=== PATIENT | female | born 1970 | race African-American/Black ===

== ENCOUNTER 2019-03-26 20:48 | Emergency (ER) | payer OTHER ==
[~2019-03-26] VITALS: Ht 160 cm; Wt 56.7 kg
[2019-03-26] MEDS ORDERED: LIPITOR10 MG (21:34)
[2019-03-26] MEDS ORDERED: PROTONIX 20 MG20 M1 (21:34)
[2019-03-26] MEDS ORDERED: HUMALOG100 UNIT/1 (21:34)
[2019-03-26] MEDS ORDERED: NEURONTIN 300300 M1 (21:35)
[2019-03-26] MEDS ORDERED: DYAZIDE 37.5-21 EACH (21:35)
[2019-03-26] MEDS ORDERED: VALTREX 500 MG500 M1 (21:36)
[2019-03-26] MEDS ORDERED: NORCO 5-325 TA1 EAC1 PO (22:43)
[2019-03-26 22:59] VITALS: BP 139/80
== END 2019-03-26 23:00 | disposition home or self-care (01) ==
LOC: M.ERS 20:48
DX: S60.211A Contusion of right wrist, initial encounter (principal); E11.9 Type 2 diabetes mellitus without complications; Z88.1 Allergy status to other antibiotic agents; Z79.4 Long term (current) use of insulin; V43.62XA Car passenger injured in collision with other type car in traffic accident, initial encounter; Y92.89 Other specified places as the place of occurrence of the external cause; Y93.89 Activity, other specified; Y99.8 Other external cause status